=== PATIENT | female | born 1975 | race Caucasian/White ===

== ENCOUNTER → 2022-09-13 13:22 | Outpatient (CLI) | payer BC, SELFPAY ==
--- NOTE | ~2022-09-13 | MR_ITS ---
EXAMINATION: MR shoulder LT wo con DATE: 09/13/2022 14:12 INDICATION: Impingement syndrome with left shoulder pain and limited range of motion TECHNIQUE: Magnetic resonance imaging (MRI) of the left shoulder was performed without intravenous co ntrast. Sequences included axial PD-weighted FS FSE, coronal oblique PD-weighted FS FSE, coronal obli que T2-weighted FS FSE, sagittal PD-weighted FS FSE, and sagittal T1-weighted SE. COMPARISON: None. FINDINGS: Coracoacromial arch: The acromion undersurface is curved in morphology (type II). The coracoacromial ligament is normal. M oderate acromioclavicular osteoarthritis. Rotator cuff: Supraspinatus, infraspinatus and teres minor tendons are normal. Mild tendinopathy and small mild par tial-thickness intrasubstance tear at the central aspect of the lesser tuberosity footplate which nini sures approximately 2 mm craniocaudally and involves approximately one third of the tendon thickness. Normal rotator cuff muscle bulk and signal. Biceps tendon, glenoid labrum and glenohumeral cartilage: Long head of the biceps tendon is normal. The posterior superior, posterior and inferior glenoid labr um are small which may be developmental with no evident tear. Glenohumeral cartilage is normal. Fluid: Physiologic amount of fluid in the glenohumeral joint and biceps tendon sheath. No loose osteochondr al bodies. No abnormal fluid signal in the subacromial/subdeltoid bursa to suggest bursitis. Bones: Normal marrow signal with no edema, fracture or abnormal marrow replacing process. IMPRESSION: 1. Mild tendinopathy with very small partial-thickness intrasubstance tear at the distal subscapulari s tendon. 2. Moderate acromioclavicular osteoarthritis. Reviewed, dictated and finalized at location L. IMPRESSION: 1. Mild tendinopathy with very small partial-thickness intrasubstance tear at t he distal subscapularis tendon. 2. Moderate acromioclavicular osteoarthritis.
== END ==
PROVIDERS: PCP Family Medicine; Visit Provider Orthopaedic Surgery Hand Surgery
DX: M75.42 Impingement syndrome of left shoulder (principal); M19.012 Primary osteoarthritis, left shoulder
CPT/HCPCS: 73221